=== PATIENT | female | born 2000 ===

== ENCOUNTER 2023-10-17 06:48 | Day surgery (SDC) | payer OTHER ==
[~2023-10-17] VITALS: Ht 160 cm; Wt 90.7 kg
[2023-10-17 07:11] LABS: BASOPHILS % (AUTO) 0.5 % (0.0-2.0); EOSINOPHILS # (AUTO) 0.1 K/uL (0-0.4); EOSINOPHILS % (AUTO) 1.5 % (0.0-4.0); HEMATOCRIT 40.1 % (36-48); HEMOGLOBIN 13.4 g/dL (12.0-16.0); LYMPHOCYTES # (AUTO) 4.7 K/uL (2.5-16.5); LYMPHOCYTES % (AUTO) 45.4 % (20.5-51.1); MEAN CORPUSCULAR HEMOGLOBIN 28 pg (27-31); MEAN CORPUSCULAR HGB CONC 33 g/dL (33-37); MEAN CORPUSCULAR VOLUME 83.5 fL (80-94); MONOCYTES # (AUTO) 0.8 K/uL (0.8-1.0); MONOCYTES % (AUTO) 7.7 % (1.7-9.3); NEUTROPHILS # (AUTO) 4.6 K/uL (1.8-7.7); NEUTROPHILS % (AUTO) 44.9 % (42.2-75.2); PLATELET COUNT (AUTO) 283 K/uL (140-450); RED BLOOD CELL COUNT(AUTO) 4.81 MIL/uL (4.20-5.40); RED CELL DISTRIBUTION WIDTH 14.9 % (11.6-13.7); WHITE BLOOD COUNT (AUTO) 10.3 K/uL (4.8-10.8)
[2023-10-17] MEDS ORDERED: PROPOFOL 200 MG/20 ML VIAL IV ONE (07:29)
[2023-10-17] MEDS ORDERED: HYDROmorphone PFS 2 MG/ML SYR ONE ×2 (07:29)
[2023-10-17 07:37] LABS: ALBUMIN 3.4 g/dL (3.4-5.0); ANION GAP 11.5 (8-16); CALCIUM 8.5 mg/dL (8.5-10.1); CREATININE 0.6 mg/dL (0.6-1.3); POTASSIUM 3.5 mmol/L (3.5-5.1); TOTAL BILIRUBIN 0.3 mg/dL (0.0-1.0); TOTAL PROTEIN, SERUM 7.5 g/dL (6.4-8.2)
[2023-10-17] MEDS ORDERED: SEVOFLURANE 250 ML BTL INH ONE (09:40)
[2023-10-17] MEDS ORDERED: DEXAMETHASONE 4 MG/ML VIAL ONE (09:53)
[2023-10-17] MEDS ORDERED: ONDANSETRON 4 MG/2 ML VIAL ONE (09:53)
[2023-10-17] MEDS ORDERED: ROCURONIUM 50 MG/5 ML VIAL IV ONE (09:53)
[2023-10-17] MEDS ORDERED: SUCCINYLCHOLINE CHLORIDE 200 MG/10 ML VIAL IVP ONE (09:54)
[2023-10-17] MEDS ORDERED: NEOSTIGMINE 1:1000 10 MG/10 ML VIAL ONE (09:54)
[2023-10-17] MEDS ORDERED: GLYCOPYRROLATE 0.2 MG/ML VIAL ONE ×2 (09:54)
[2023-10-17] MEDS: ceFAZolin 2,000 MG VIAL ONE (10:16)
[2023-10-17] MEDS ORDERED: HYDROmorphone 1 MG/ML AMP IVP PRN (10:35)
[2023-10-17] MEDS ORDERED: MEPERIDINE 25 MG/ML SYR IVP PRN (10:35)
[2023-10-17] MEDS ORDERED: ONDANSETRON 4 MG/2 ML VIAL IVP PRN (10:35)
[2023-10-17] MEDS ORDERED: ePHEDrine 50 MG/ML VIAL ONE ×3 (11:36→11:37)
== END 2023-10-17 13:32 | disposition home or self-care (01) ==
LOC: MDS 06:48 → MMU 06:48 → MDS 13:32
PROVIDERS: ATTEND Obstetrics & Gynecology
DX: R93.89 Abnormal findings on diagnostic imaging of other specified body structures (principal); N84.0 Polyp of corpus uteri
CPT/HCPCS: 36415; 58558; 80053; 82948; 85025; 86886; 86900; 86901; 88305; C1758; J0330; J1100; J1170; J2405; J2704; J2710; J3490; J7030; J0690; J7060

== ENCOUNTER 2023-10-19 20:35 | Emergency (ER) | payer OTHER ==
[~2023-10-19] VITALS: Ht 160 cm; Wt 90.7 kg
[2023-10-19 20:54] VITALS: BP 134/96; PULSE 72; RESP 20; TEMP 98.1; O2SAT 100
[2023-10-19 22:58] VITALS: BP 128/65; PULSE 70; RESP 18; TEMP 97.5; O2SAT 98
== END 2023-10-19 22:58 | disposition home or self-care (01) ==
LOC: MED 20:35
DX: M79.18 Myalgia, other site (principal); F41.0 Panic disorder [episodic paroxysmal anxiety]; R03.0 Elevated blood-pressure reading, without diagnosis of hypertension; E11.9 Type 2 diabetes mellitus without complications
CPT/HCPCS: 82948; 93005; 99283